=== PATIENT | male | born 1985 | race Caucasian/White ===

== ENCOUNTER 2020-02-04 11:25 | Emergency (ER) | payer OTHER ==
[~2020-02-04] VITALS: Ht 162.6 cm; Wt 66.2 kg
[2020-02-04 11:33] VITALS: Ht 162.6 cm; Wt 66.2 kg
[2020-02-04 13:51] VITALS: BP 123/75
== END 2020-02-04 13:51 | disposition home or self-care (01) ==
LOC: ED 11:25
DX: S61.452A Open bite of left hand, initial encounter (principal); K21.9 Gastro-esophageal reflux disease without esophagitis; Z88.6 Allergy status to analgesic agent; W54.0XXA Bitten by dog, initial encounter; Y93.89 Activity, other specified; Y92.89 Other specified places as the place of occurrence of the external cause; Y99.8 Other external cause status
CPT/HCPCS: 90715; Q0092

== ENCOUNTER 2020-02-06 19:38 | Emergency (ER) | payer OTHER ==
[~2020-02-06] VITALS: Ht 162.6 cm; Wt 68.5 kg
[2020-02-06 19:49] VITALS: BP 117/91; Ht 162.6 cm; Wt 68.5 kg
== END 2020-02-06 20:03 | disposition home or self-care (01) ==
LOC: ED 19:38
DX: S61.452D Open bite of left hand, subsequent encounter (principal); Z88.6 Allergy status to analgesic agent; W54.0XXD Bitten by dog, subsequent encounter

== ENCOUNTER 2020-10-24 12:21 | Emergency (ER) | payer OTHER ==
[~2020-10-24] VITALS: Ht 167.6 cm; Wt 66.7 kg
[2020-10-24 12:36] VITALS: Ht 167.6 cm; Wt 66.7 kg
[2020-10-24 13:13] LABS: PLATELET COUNT 250 x10^3mcL (152-348); RED CELL DISTRIBUTION WIDTH 13.7 % (12.1-16.2)
[2020-10-24 13:22] LABS: CALCIUM 9.9 mg/dL (8.5-10.1); CARBON DIOXIDE 34.3 mmol/L (21-32); CHLORIDE SERUM 105 mmol/L (98-107); GFR1 > 60 mL/min; GLUCOSE SERUM 120 mg/dL (74-106); POTASSIUM SERUM 4.3 mmol/L (3.5-5.1); SODIUM SERUM 140 mmol/L (136-145)
[2020-10-24 13:28] LABS: ALKALINE PHOSPHATASE 79 U/L (46-116); ALT/SGPT 41 U/L (16-63); AST/SGOT 21 U/L (15-37); BILIRUBIN TOTAL 0.17 mg/dL (0.20-1.00); TOTAL PROTEIN, SERUM 7.1 g/dL (6.4-8.2)
[2020-10-24 14:13] LABS: microscopic required? NO
[2020-10-24 15:05] LABS: UA SPECIFIC GRAVITY 1.025 (1.005-1.035); urine erythrocyte NEGATIVE (NEGATIVE)
[2020-10-24] MEDS ORDERED: MOT600 PO (15:09)
[2020-10-24] MEDS ORDERED: LEV500 PO (15:09)
[2020-10-24 15:30] VITALS: BP 106/69
== END 2020-10-24 15:30 | disposition home or self-care (01) ==
LOC: ED 12:21
PROVIDERS: Specialist
DX: N45.1 Epididymitis (principal); N43.3 Hydrocele, unspecified; N50.3 Cyst of epididymis; K21.9 Gastro-esophageal reflux disease without esophagitis; Z88.6 Allergy status to analgesic agent; Z98.890 Other specified postprocedural states
CPT/HCPCS: 87491; 87591